=== PATIENT | female | born 1985 | race Caucasian/White ===

== ENCOUNTER 2017-06-24 18:14 | Emergency (ER) | payer SELFPAY ==
[2017-06-24 18:20] VITALS: BP 158/92
--- NOTE | 2017-06-24 18:26 | UC ---
Lower Extremity/Ankle HPI - HPI Summary HPI Summary: 31 YEAR OLD FEMALE PRESENTS WITH COMPLAINS OF LEFT LOWER LEGS INJURY FROM FALL. - History of Current Complaint Chief Complaint: UCLowerExtremity Stated Complaint: LEG INJURY Time Seen by Provider: 06/24/17 18:24 Hx Last Menstrual Period: IUD does not get - Allergies/Home Medications Allergies/Adverse Reactions: Allergies Allergy/AdvReac Type Severity Reaction Status Date / Time Latex Allergy Intermediate Rash Verified 06/24/17 18:20 Amoxicillin Allergy Unknown Unknown Verified 06/24/17 18:20 Reaction Details Penicillins Allergy Unknown See Comment Verified 06/24/17 18:20 PMH/Surg Hx/FS Hx/Imm Hx Previously Healthy: Yes - Surgical History Surgical History: Yes Surgery Procedure, Year, and Place: . LEEP - Family History Known Family History: Positive: None - Social History Alcohol Use: None Substance Use Type: None Smoking Status (MU): Former Smoker Type: Cigarettes Length of Time of Smoking/Using Tobacco: 2 years Have You Smoked in the Last Year: No When Did the Patient Quit Smoking/Using Tobacco: 2011 Review of Systems Constitutional: Negative Skin: Negative Eyes: Negative ENT: Negative Respiratory: Negative Cardiovascular: Negative Gastrointestinal: Negative Genitourinary: Negative Motor: Negative Neurovascular: Negative Musculoskeletal: Myalgia - LEFT LOWER LEG PAIN PAIN/SWELLING, Other: Neurological: Negative Psychological: Negative All Other Systems Reviewed And Are Negative: Yes Physical Exam Triage Information Reviewed: Yes Vital Signs: Initial Vital Signs Temp 36.9 C 06/24/17 18:15 Pulse 107 06/24/17 18:15 Resp 18 06/24/17 18:15 BP 158/92 06/24/17 18:15 Pulse Ox 99 06/24/17 18:15 Eye Exam: Normal ENT Exam: Normal Dental Exam: Normal Neck exam: Normal Neck: Positive: 1 Respiratory Exam: Normal Cardiovascular Exam: Normal Abdominal Exam: Normal Musculoskeletal: Positive: Other: - LEFT LOWER LEG CONTUSION Neurological Exam: Normal Psychological Exam: Normal Skin Exam: Normal Lower Extremity Course/Dx - Differential Dx/Diagnosis Provider Diagnoses: LEFT LOWER LEG CONTUSION Discharge - Discharge Plan Condition: Stable Disposition: HOME Prescriptions: DOXYcycline CAP(*) [DOXYcycline 100MG CAP(*)] 100 mg PO BID #14 cap Meloxicam(NF) [Mobic(NF)] 7.5 mg PO BID #30 tab Mupirocin 2% OINT* [Bactroban 2 % Oint*] 1 applic TOPICAL BID #1 tube Patient Education Materials: Ankle Sprain (ED), Leg Pain (ED) Forms: *Work Release Referrals: Saravanan Alvarez MD [Primary Care Provider] - Carlos Sullivan MD [Medical Doctor] -
--- NOTE | 2017-06-24 19:05 | RAD ---
INDICATION: Left ankle injury COMPARISON: None TECHNIQUE: AP, lateral, and oblique views were obtained. FINDINGS: There is no acute fracture or dislocation. There is a prominent plantar calcaneal spur There is no significant soft tissue swelling. IMPRESSION: NO ACUTE BONY FINDINGS. HEEL SPUR.
--- NOTE | 2017-06-24 19:06 | RAD ---
INDICATION: Left leg injury COMPARISON: None TECHNIQUE: AP and lateral views were obtained. FINDINGS: There is no acute fracture. There is soft tissue swelling of the lateral distal leg with a disruption of the normal fat- muscle interface. IMPRESSION: MILD DISTAL LATERAL SOFT TISSUE SWELLING
== END 2017-06-24 19:30 | disposition home or self-care (01) ==
LOC: UCEAST 18:14
DX: S80.12XA Contusion of left lower leg, initial encounter (principal); W19.XXXA Unspecified fall, initial encounter; Z88.0 Allergy status to penicillin; Z88.3 Allergy status to other anti-infective agents; Z91.040 Latex allergy status; Z87.891 Personal history of nicotine dependence
CPT/HCPCS: 84702; 99213; G0463

== ENCOUNTER 2017-06-27 16:43 | Emergency (ER) | payer SELFPAY ==
[2017-06-27 16:52] VITALS: BP 142/73
--- NOTE | 2017-06-27 17:37 | UC ---
Lower Extremity/Ankle HPI - HPI Summary HPI Summary: Pt fell on some steps 3 days ago sustaining abrasions and hematoma to front of L yadav. Was seen here, negative x-ray. Supposed to return to work tomorrow but is not feeling up to it since even putting on socks and shoes is very uncomfortable. 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 Denies calf pain, redness, fever, or streaking. - History of Current Complaint Hx Obtained From: Patient Hx Last Menstrual Period: 3 yrs ago ?: No Onset/Duration: Sudden Onset Severity Initially: Moderate Severity Currently: Moderate Aggravating Factor(s): Standing, Ambulation Alleviating Factor(s): Rest Able to Bear Weight: Yes <Jeimy Strong - Last Filed: 06/27/17 17:32> <Alessandra Aviles - Last Filed: 06/27/17 17:43> - History of Current Complaint Chief Complaint: UCLowerExtremity Stated Complaint: LEG INJURY FOLLOW UP Time Seen by Provider: 06/27/17 17:10 - Allergies/Home Medications Allergies/Adverse Reactions: Allergies Allergy/AdvReac Type Severity Reaction Status Date / Time Latex Allergy Intermediate Rash Verified 06/27/17 16:52 Amoxicillin Allergy Unknown Unknown Verified 06/27/17 16:52 Reaction Details Penicillins Allergy Unknown See Comment Verified 06/27/17 16:52 PMH/Surg Hx/FS Hx/Imm Hx Other Cardiovascular History: murmur - Surgical History Surgical History: Yes Surgery Procedure, Year, and Place: . LEEP - Family History Known Family History: Positive: None - Social History Occupation: Employed Full-time Lives: With Family Alcohol Use: None Substance Use Type: None Smoking Status (MU): Former Smoker Type: Cigarettes Length of Time of Smoking/Using Tobacco: 2 years Have You Smoked in the Last Year: No When Did the Patient Quit Smoking/Using Tobacco: 2011 <Jeimy Strong - Last Filed: 06/27/17 17:32> Review of Systems Constitutional: Negative Skin: Bruising Eyes: Negative ENT: Negative Respiratory: Negative Cardiovascular: Negative Gastrointestinal: Negative Genitourinary: Negative Motor: Negative Neurovascular: Negative Musculoskeletal: Negative Neurological: Negative Psychological: Negative All Other Systems Reviewed And Are Negative: Yes <Jeimy Strong - Last Filed: 06/27/17 17:32> Physical Exam Triage Information Reviewed: Yes Appearance: Well-Appearing, No Pain Distress, Obese Vital Signs: Initial Vital Signs Temp 98.7 F 06/27/17 16:47 Pulse 71 06/27/17 16:47 Resp 12 06/27/17 16:47 BP 142/73 06/27/17 16:47 Pulse Ox 100 06/27/17 16:47 Vital Signs Reviewed: Yes Eye Exam: Normal, Other - PERRL Eyes: Positive: Conjunctiva Clear ENT Exam: Normal ENT: Positive: Normal ENT inspection, Hearing grossly normal, Pharynx normal, TMs normal Dental: Positive: Gross Decay/Caries @. Negative: Percussion Tenderness @, Abscess @ Neck exam: Normal Neck: Positive: Supple, Nontender, No Lymphadenopathy Respiratory Exam: Normal Respiratory: Positive: Chest non-tender, Lungs clear, Normal breath sounds, No respiratory distress, No accessory muscle use Cardiovascular Exam: Normal Cardiovascular: Positive: RRR, No Murmur Musculoskeletal Exam: Other - +CMS in L toes; swelling and bruising on anterior L yadav only. No L calf tenderness or swelling. Musculoskeletal: Positive: Strength Intact, ROM Intact Neurological Exam: Normal Neurological: Positive: Alert Psychological Exam: Normal Skin Exam: Other - hematoma L yadav Skin: Positive: Other - small linear abrasion on L yadav <Jeimy Strong - Last Filed: 06/27/17 17:32> Vital Signs: Initial Vital Signs Temp 98.7 F 06/27/17 16:47 Pulse 71 06/27/17 16:47 Resp 12 06/27/17 16:47 BP 142/73 06/27/17 16:47 Pulse Ox 100 06/27/17 16:47 <Alessandra Aviles - Last Filed: 06/27/17 17:43> Lower Extremity Course/Dx - Differential Dx/Diagnosis Provider Diagnoses: L yadav hematoma. L yadav abrasion <Jeimy Strong - Last Filed: 06/27/17 17:32> Discharge <Jeimy Strong - Last Filed: 06/27/17 17:32> <Alessandra Aviles - Last Filed: 06/27/17 17:43> - Discharge Plan Condition: Stable Disposition: HOME Patient Education Materials: Hematoma (ED) Forms: *Work Release Referrals: Saravanan Alvarez MD [Primary Care Provider] - Additional Instructions: Please follow up with the orthopedist as recommended by your physician on Saturday. Continue to elevate when needed, but try to gradually increase your activity to help the hematoma start to resolve. Attestation Statement User Type: Provider - I was available for consult. This patient was seen by the MARCEL. The patient was not presented to, seen by, or examined by me. -Mili <Alessandra Aviles - Last Filed: 06/27/17 17:43>
== END 2017-06-27 17:42 | disposition home or self-care (01) ==
LOC: UCEAST 16:43
DX: S80.12XA Contusion of left lower leg, initial encounter (principal); S80.812A Abrasion, left lower leg, initial encounter; Z87.891 Personal history of nicotine dependence; W10.9XXA Fall (on) (from) unspecified stairs and steps, initial encounter; Y92.9 Unspecified place or not applicable
CPT/HCPCS: 99211; G0463

== ENCOUNTER 2017-08-24 17:13 | Emergency (ER) | payer BC, OTHER ==
[2017-08-24 19:05] VITALS: BP 133/87
--- NOTE | 2017-08-24 19:53 | UC ---
Dental HPI - HPI Summary HPI Summary: Patient presents to the with CC of pain over left lower molar radiating to the jaw and ear. Denies trismus, drooling or dysphagia. Pain is 10/10, sharp and throbbing. Denies airway compromise or SOB. Denies ear pain, eye pain, blurry vision or double vision. Otherwise healthy. Pain is worse with chewing and cold drinks, better with ibuprofen, but only improves slightly. Patient denies dental care for several years. She has been using orajel without relief. - History of Current Complaint Chief Complaint: UCEar Stated Complaint: JAW PAIN Time Seen by Provider: 08/24/17 19:24 Hx Obtained From: Patient Hx Last Menstrual Period: 3-4 yrs ?: No Onset/Duration: Sudden Onset Severity: Moderate Pain Intensity: 5 Pain Scale Used: 0-10 Numeric - Allergies/Home Medications Allergies/Adverse Reactions: Allergies Allergy/AdvReac Type Severity Reaction Status Date / Time Latex Allergy Intermediate Rash Verified 08/24/17 19:05 Amoxicillin Allergy Unknown Unknown Verified 08/24/17 19:05 Reaction Details Penicillins Allergy Unknown See Comment Verified 08/24/17 19:05 PMH/Surg Hx/FS Hx/Imm Hx Previously Healthy: Yes - Surgical History Surgical History: Yes Surgery Procedure, Year, and Place: . LEEP - Family History Known Family History: Positive: None - Social History Occupation: Employed Full-time Lives: With Family Alcohol Use: None Substance Use Type: None Smoking Status (MU): Former Smoker Type: Cigarettes Length of Time of Smoking/Using Tobacco: 2 years Have You Smoked in the Last Year: No When Did the Patient Quit Smoking/Using Tobacco: 2011 Review of Systems Constitutional: Negative Skin: Negative ENT: Dental Pain Respiratory: Negative Cardiovascular: Negative Genitourinary: Negative Neurovascular: Negative Musculoskeletal: Negative Is Patient Immunocompromised?: No All Other Systems Reviewed And Are Negative: Yes Physical Exam Triage Information Reviewed: Yes Appearance: Well-Appearing, Well-Nourished Vital Signs: Initial Vital Signs Temp 97.6 F 08/24/17 19:02 Pulse 81 08/24/17 19:02 Resp 12 08/24/17 19:02 BP 133/87 08/24/17 19:02 Pulse Ox 98 08/24/17 19:02 Vital Signs Reviewed: Yes Eye Exam: Normal Eyes: Positive: Conjunctiva Clear Neck exam: Normal Neck: Positive: Supple, No Lymphadenopathy Respiratory Exam: Normal Respiratory: Positive: Chest non-tender Cardiovascular Exam: Normal Cardiovascular: Positive: RRR Musculoskeletal: Positive: Strength Intact Neurological Exam: Normal Neurological: Positive: Alert Psychological: Positive: Normal Response To Family Skin Exam: Normal Dental Complaint Course/Dx - Course Course Of Treatment: You have been diagnosed with dental pain with possible infection: Antibiotics as prescribed to you. Penicillin four times daily for 7 days. To minimize the potential for gastrointestinal intolerance, Pencillin should be taken at the start of a meal. If you have any questions about your medication, please contact us or ask your pharmacist. Salt water rinses several times per day will improve healing time. Ibuprofen 600mg three times daily with meals for discomfort. May use ETOH or orajel over the area for comfort. Follow up with a dentist for routine care to prevent recurrence of infections. If fever, worsening pain or swelling develops, see your PCP, dentist or come back to the Urgent Care. - Differential Dx/Diagnosis Differential Diagnosis/Dx: Dental Abscess, Dental Caries Provider Diagnoses: Dental Infection Discharge - Discharge Plan Condition: Stable Disposition: HOME Prescriptions: HYDROcodone/ACETAMIN 5-325 MG* [Osprey 5-325 TAB*] 1 tab PO Q4H PRN #12 tab MDD 6 PRN Reason: Pain Penicillin VK 500 MG TAB(NF) [Penicillin VK 500 mg Tab(NF)] 500 mg PO QID #28 tab MDD 4 Patient Education Materials: Dental Abscess (ED) Referrals: Saravanan Alvarez MD [Primary Care Provider] - Additional Instructions: You have been diagnosed with dental pain with possible infection: Antibiotics as prescribed to you. Penicillin four times daily for 7 days. To minimize the potential for gastrointestinal intolerance, Pencillin should be taken at the start of a meal. If you have any questions about your medication, please contact us or ask your pharmacist. Salt water rinses several times per day will improve healing time. Ibuprofen 600mg three times daily with meals for discomfort. May use lollicaines over the area for comfort. Follow up with a dentist for routine care to prevent recurrence of infections. If fever, worsening pain or swelling develops, see your PCP, dentist or come back to the Emergency Department.
[2017-08-24] MEDS ORDERED: HYDROcodone/ACETAMIN 5-325 MG* 1 TAB PO ONE (20:19)
[2017-08-24] MEDS ORDERED: Clindamycin CAP* 150 MG PO ONE (20:19)
== END 2017-08-24 20:31 | disposition home or self-care (01) ==
LOC: UCEAST 17:13
DX: K04.7 Periapical abscess without sinus (principal); Z88.1 Allergy status to other antibiotic agents; Z88.0 Allergy status to penicillin; Z87.891 Personal history of nicotine dependence
CPT/HCPCS: 99212; A9270-GY; G0463

== ENCOUNTER 2017-10-21 08:46 | Emergency (ER) | payer BC ==
[2017-10-21 08:52] VITALS: BP 153/93
--- NOTE | 2017-10-21 09:19 | UC ---
Dental HPI - HPI Summary HPI Summary: 32 y/o female presents to the urgent care c/o Rt upper gum pain, left ear pain and dizziness at times since 10/18/2017. Pt states she had similar symptoms about 1 month ago. She was PX ABX and f/u with her [facility] who extracted a molar in her RT upper jaw. Today, toothache with swelling is in a different tooth. Pain was severe yesterday 08/04 and she took Ibuprofen 600mg PO and 3 tabs of tylenol PO, 3X yesterday to alleviate pain, She also placed ice, oralgel and salt water. This morning pain was less and she took Ibuprofen 600mg PO around 0600am. Pt denies fever, SOB, CORCORAN, chest pain, abdominal pain, N/V/D. Pain now is /. She PCP allergic. - History of Current Complaint Chief Complaint: UCDentalProblem Stated Complaint: DENTAL PAIN Time Seen by Provider: 10/21/17 09:17 Hx Obtained From: Patient Hx Last Menstrual Period: IUD ?: No Onset/Duration: Gradual Onset, Lasting Days - 3 days, Still Present Severity: Moderate Pain Intensity: 6 Pain Scale Used: 0-10 Numeric Aggravating Factor(s): Chewing Alleviating Factor(s): Topical Meds Related History: Swelling - Allergies/Home Medications Allergies/Adverse Reactions: Allergies Allergy/AdvReac Type Severity Reaction Status Date / Time Latex Allergy Intermediate Rash Verified 10/21/17 08:52 Amoxicillin Allergy Unknown Unknown Verified 10/21/17 08:52 Reaction Details Penicillins Allergy Unknown See Comment Verified 10/21/17 08:52 PMH/Surg Hx/FS Hx/Imm Hx Previously Healthy: Yes - Pt denies PMHX - Surgical History Surgical History: Yes Surgery Procedure, Year, and Place: . LEEP - Family History Known Family History: Positive: Hypertension, Diabetes - Social History Occupation: Employed Full-time Lives: With Family Alcohol Use: None Substance Use Type: None Smoking Status (MU): Former Smoker Type: Cigarettes Length of Time of Smoking/Using Tobacco: 2 years Have You Smoked in the Last Year: No When Did the Patient Quit Smoking/Using Tobacco: 2011 - Immunization History Most Recent Influenza Vaccination: Not UTD Review of Systems Constitutional: Negative Skin: Negative Eyes: Negative ENT: Dental Pain - with swelling in the left upper jaw Respiratory: Negative Cardiovascular: Negative Gastrointestinal: Negative Genitourinary: Negative Motor: Negative Neurovascular: Negative Musculoskeletal: Negative Neurological: Headache Psychological: Negative Is Patient Immunocompromised?: No All Other Systems Reviewed And Are Negative: Yes Physical Exam Triage Information Reviewed: Yes Vital Signs: Initial Vital Signs Temp 97.5 F 10/21/17 08:48 Pulse 86 10/21/17 08:48 Resp 16 10/21/17 08:48 BP 153/93 10/21/17 08:48 Pulse Ox 99 10/21/17 08:48 - Additional Comments Vital signs reviewed General: well developed. well nourished female sitting in the examining table w/ o any apparent distress Eyes: Positive: Conjunctiva Clear - PERRLA, EOMI, fundi grossly normal ENT: Positive: Normal ENT inspection, Hearing grossly normal, Pharyngeal erythema, TMs normal, Uvula midline. Negative: Tonsillar swelling, Tonsillar exudate, Trismus Dental: Positive: Percussion Tenderness @ - molar 12,13, Gross Decay/Caries and fracture molar at 12, 13, Abscess @ - molar 12,13, Cervical Lymphadenopathy - B/ L anterior, Other:Poor dental hygiene with multiple missing molars and other with caries. Positive left cheek with mild swelling Neck: Positive: Supple, Nontender Respiratory: Positive: Chest non-tender, Lungs clear, Normal breath sounds, No respiratory distress Cardiovascular: Positive: RRR, No Murmur, Pulses Normal, Brisk Capillary Refill Abdomen Description: Positive: Nontender, No Organomegaly, Soft. Negative: CVA Tenderness (R), CVA Tenderness (L) Bowel Sounds: Positive: Present Musculoskeletal: Positive: Strength Intact, ROM Intact, No Edema Neurological Exam: Normal Psychological Exam: Normal Skin Exam: Normal Dental Complaint Course/Dx - Course Course Of Treatment: 32 y/o female presents to the urgent care c/o Rt upper gum pain, left ear pain and dizziness at times since 10/18/2017. Pt states she had similar symptoms about 1 month ago. She was PX ABX and f/u with her [facility] who extracted a molar in her RT upper jaw. Today, toothache with swelling is in a different tooth. Pain was severe yesterday 08/04 and she took Ibuprofen 600mg PO and 3 tabs of tylenol PO, 3X yesterday to alleviate pain, She also placed ice, oralgel and salt water. This morning pain was less and she took only Ibuprofen 600mg PO around 0600am. Pt denies fever, SOB, CORCORAN, chest pain , abdominal pain, N/V/D. Pain now is 6/10. She PCP allergic. Hx obtained. Pt Pt with dental abscess on and fracture molar #12 ans 13 and multiple caries on examination. Pt has took 4500mg of Tylenol and 2400mg of Ibuprofen in the past 30hrs. Pt educated on tylenol dosages and the risks of acetaminophen overdose, liver and kidney failure. Also educated on the importance of good oral hygiene and f/u with Dentist as soon as possible. Pt given viscous Lidocaine at the clinic and the rest dispense home to alleviate symptoms . Pt Rx Clyndamycin PO and Naproxen PO for pain. Pt strongly advised to f/u with Dentist as soon as possible further evaluation and treatment. Pt's BP is elevated today, Pt advised to decrease salt in diet , monitor BP and f/u with PCP. Pt understood and agreed with plan of care. Left the clinic ambulating, hemodynamycally stable , A&OX3 - Differential Dx/Diagnosis Differential Diagnosis/Dx: Dental Abscess, Dental Caries, Fractured Tooth, Gingivitis, Odontogenic Pain, Peridontic Disease, Peritonsillar Abcess, Pharyngitis, TMJ Syndrome, Tonsillitis Provider Diagnoses: 1- Dental abscess around molar #12 and 13. 2- Mutiple fracture teeth and caries Discharge - Discharge Plan Condition: Stable Disposition: HOME Prescriptions: Clindamycin Cap(NF) [Clindamycin Cap 300 mg Cap(NF)] 300 mg PO Q6H #29 cap Naproxen [Naproxen 500 mg] 500 mg PO Q8H PRN #30 tab PRN Reason: Pain Patient Education Materials: Dental Abscess (ED), Low Sodium Diet (ED), Safe Use of Acetaminophen (ED) Referrals: Saravanan Alvarez MD [Primary Care Provider] - 3 Days Additional Instructions: 1-Please take full course of antibiotic to avoid resistance. 2- Take Naproxen only q6-8hr as instructed after meals to alleviate pain and swelling. Please REMEMBER not to combine with Advil or Tylenol. Max dose of tylenol per day is 4g and Ibuprofen max dose daily is 2400mg. 3- F/u with your Dentist or Dental List provided as soon as possible for further treatment. 4- If symptoms do not improve or worsen please return to the urgent care or f/u with your PCP for further evaluation and treatment 5- Your BP is elevated today please monitor your BP and decrease salt in your diet. If your BP continues to be elevated please f/u with your PCP for further management
[2017-10-21] MEDS ORDERED: Lidocaine 2% VISCOUS* 15 ML UDC SWISH SPIT ONE (09:42)
== END 2017-10-21 10:03 | disposition home or self-care (01) ==
LOC: UCEAST 08:46
DX: K04.7 Periapical abscess without sinus (principal); S02.5XXA Fracture of tooth (traumatic), initial encounter for closed fracture; K02.9 Dental caries, unspecified; Z87.891 Personal history of nicotine dependence
CPT/HCPCS: 99212; G0463

== ENCOUNTER 2018-06-18 16:32 | Emergency (ER) | payer OTHER ==
--- NOTE | 2018-06-18 18:04 | ED ---
Abdominal Pain/Female - HPI Summary HPI Summary: This is manoj Eldridge documenting for attending Horacio Cade M.D. Patient is a 32 y/o F w/ c/o abdominal pain onsetting today. Patient reports that two years ago her doctor informed her that she has a "fatty tumor" in her abdomen. She states her doctor told her not to worry about it unless it gets bigger or worsens. Today, patient reports twisting her body, feeling a pull, and then experiencing subsequent abdominal pain. She reports tumor has also gotten larger. In the room, pain is rated 5/10. Pain is not reported to radiate. She notes that she has had issues with this type of pain previously and states that it would be brought on by certain movements. Nothing is reported to alleviate symptoms. Patient denies N/V/D, constipation, chest pain, and SOB. PSHx of caesarean section is noted and she states her LNMP was 9 years ago. Allergies and home medications are noted. - History of Current Complaint Chief Complaint: EDAbdPain Stated Complaint: ABD PAIN/MASS Time Seen by Provider: 06/18/18 18:01 Hx Obtained From: Patient Hx Last Menstrual Period: IUD Onset/Duration: Sudden Onset, Lasting Hours - onset today Timing: Constant - pain has been constant today, notes intermittent episodes previously brought on by certain movements Severity Currently: Moderate Pain Intensity: 5 Pain Scale Used: 0-10 Numeric - 5/10 Location: Suprapubic Radiates: No Aggravating Factor(s): Movement Alleviating Factor(s): Nothing Associated Signs and Symptoms: Positive: Other: - NEGATIVE: SOB, constipation. Negative: Chest Pain, Nausea, Vomiting, Diarrhea Allergies/Adverse Reactions: Allergies Allergy/AdvReac Type Severity Reaction Status Date / Time amoxicillin Allergy Anaphylatic Verified 06/18/18 16:43 Shock Latex, Natural Rubber Allergy Rash Verified 06/18/18 16:43 Penicillins Allergy Hives Verified 06/18/18 16:43 PMH/Surg Hx/FS Hx/Imm Hx Endocrine/Hematology History: Denies: Hx Diabetes Cardiovascular History: Denies: Hx Hypertension, Hx Pacemaker/ICD Respiratory History: Denies: Hx Asthma Sensory History: Denies: Hx Hearing Aid Neurological History: Denies: Hx Headaches Psychiatric History: Denies: Hx Panic Disorder - Cancer History Cancer Type, 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 LEEP Infectious Disease History: No Infectious Disease History: Denies: Hx Clostridium Difficile, Hx Hepatitis, Hx Human Immunodeficiency Virus (HIV), Hx of Known/Suspected MRSA, Hx Shingles, Hx Tuberculosis, Hx Known/ Suspected VRE, Hx Known/Suspected VRSA, History Other Infectious Disease, Traveled Outside the [place] in Last 30 Days - Family History Known Family History: Positive: None, Hypertension, Diabetes - Social History Alcohol Use: None Substance Use Type: Reports: None Smoking Status (MU): Former Smoker Type: Cigarettes Length of Time of Smoking/Using Tobacco: 2 years Have You Smoked in the Last Year: No Review of Systems Negative: Chest Pain Negative: Shortness Of Breath Positive: Abdominal Pain - lower, Other - NEGATIVE: constipation . Negative: Vomiting, Diarrhea, Nausea All Other Systems Reviewed And Are Negative: Yes Physical Exam - Summary Physical Exam Summary: VITAL SIGNS: Reviewed. GENERAL: Patient is a well-developed and nourished female who is lying comfortable in the stretcher. Patient is not in any acute respiratory distress. HEAD AND FACE: No signs of trauma. No ecchymosis, hematomas or skull depressions. No sinus tenderness. EYES: PERRLA, EOMI x 2, No injected conjunctiva, no nystagmus. EARS: Hearing grossly intact. Ear canals and tympanic membranes are within normal limits. MOUTH: Oropharynx within normal limits. NECK: Supple, trachea is midline, no adenopathy, no JVD, no carotid bruit, no c- spine tenderness, neck with full ROM. CHEST: Symmetric, no tenderness at palpation LUNGS: Clear to auscultation bilaterally. No wheezing or crackles. CVS: Regular rate and rhythm, S1 and S2 present, no murmurs or gallops appreciated. ABDOMEN: Soft, tenderness at suprapubic region. No signs of distention. No rebound no guarding, and no masses palpated. Bowel sounds are normal. EXTREMITIES: FROM in all major joints, no edema, no cyanosis or clubbing. NEURO: Alert and oriented x 3. No acute neurological deficits. Speech is normal and follows commands. SKIN: Dry and warm Triage Information Reviewed: Yes Vital Signs On Initial Exam: Initial Vitals Temp Pulse Resp BP Pulse Ox 96.6 F 73 16 134/92 98 06/18/18 16:39 06/18/18 16:39 06/18/18 16:39 06/18/18 16:39 06/18/18 16:39 Vital Signs Reviewed: Yes Diagnostics - Vital Signs Vital Signs Temp Pulse Resp BP Pulse Ox 06/18/18 16:39 96.6 F 73 16 134/92 98 - Laboratory Result Diagrams: 06/18/18 18:14 06/18/18 18:14 Lab Statement: Any lab studies that have been ordered have been reviewed, and results considered in the medical decision making process. Abdominal Pain Fem Course/Dx - Course Course Of Treatment: This patient is a 32-year-old female who presents to the emergency department with chief complaint of having left lower quadrant pain. The patient is been having this pain intermittently for the last couple months. Pain is dull constant 4-5 out of 10 without radiation. The patient denies any vaginal bleeding or vaginal discharge. The patient has menstrual cycle it was 8 years ago. The patient reports that she has an IUD. Blood test results without any significant abnormality. Anesthetizes is negative. Abdominal pelvic CT impression: No acute findings. In the ED course the patient was given Toradol for the pain. Since the CT is negative the patient will be discharged home with follow-up with primary care physician. The patient declined a pelvic exam. Patient is hemodynamically stable alert and oriented 3. I discussed all the findings and test results with the patient. Patient was instructed to return to the emergency room immediately if any of the symptoms return or worsens. Plan of care was discussed with the patient and understands and agrees. All questions were answered at patient satisfaction. There were no further complaints or concerns. Lung exam before discharge: CTA B/L. Good air exchange. No wheezing or crackles heard. CVS: S1 and S2 present. No murmurs appreciated. Patient is alert and oriented x 3. Patient is hemodynamically stable. Patient will be discharged home with follow up PCP in the next 2-3 days - Diagnoses Provider Diagnoses: Lower abdominal pain Discharge - Sign-Out/Discharge Documenting (check all that apply): Patient Departure - Discharge Plan Condition: Stable Disposition: HOME Prescriptions: Naproxen [Naproxen 500 mg tab] 500 mg PO BID PRN #20 tablet PRN Reason: Pain Patient Education Materials: Acute Abdominal Pain (ED) Referrals: Saravanan Alvarez MD [Primary Care Provider] - Additional Instructions: Return to the emergency department for any new or worsening symptoms. - Billing Disposition and Condition Condition: STABLE Disposition: Home
[2018-06-18 18:35] LABS: ABS Basophils 0 10^3/ul (0-0.2); ABS Eosinophils 0 10^3/ul (0-0.6); ABS Lymphocytes 1.5 10^3/ul (1.0-4.8); ABS Monocytes 0.7 10^3/ul (0-0.8); ABS Neutrophils 6.2 10^3/ul (1.5-7.7); ABS Nucleated RBC 0 10^3/ul; Eosinophil % 0.4 % (0-6); Hematocrit 41 % (35-47); Hemoglobin 14.3 g/dl (12.0-16.0); Lymphocyte % 18.1 % (25-47); Mean Corpuscular HGB Conc 35 g/dl (31-36); Mean Corpuscular Hemoglobin 31 pg (27-31); Mean Corpuscular Volume 88 fL (80-97); Mean Platelet Volume 8.6 um3 (7.4-10.4); Nucleated Red Blood Cells % 0.2; Platelet Count 262 10^3/ul (150-450); Red Blood Count 4.67 10^6/ul (4.00-5.40); Red Cell Distribution Width 13 % (10.5-15); White Blood Count 8.5 10^3/ul (3.5-10.8)
[2018-06-18 18:55] LABS: EGFR Non-African American 108.8 (>60)
[2018-06-18] MEDS ORDERED: Ketorolac INJ* 30 MG/ML 1 ML VIAL IV PUSH ONE (19:00)
[2018-06-18 19:27] LABS: Urine Appearance Cloudy; Urine Blood Negative (Negative); Urine Color Straw; Urine Ketones Negative (Negative); Urine Protein Negative (Negative); Urine Red Blood Cell Trace(0-2/hpf) (Absent); Urine Specific Gravity 1.004 (1.010-1.030); Urine Urobilinogen Negative (Negative); Urine White Blood Cell Trace(0-5/hpf) (Absent)
[2018-06-18] MEDS ORDERED: Iohexol 300* (CONTRAST) 10 ML SDV IV ONE (20:04)
[2018-06-18 22:54] VITALS: BP 123/93
--- NOTE | 2018-06-19 07:39 | RAD ---
INDICATION: Lower abdominal pain COMPARISON: None TECHNIQUE: Axial source images were obtained from the hemidiaphragms to the symphysis pubis following administration of oral and intravenous contrast. 121 mL Omnipaque 300 was utilized. Coronal and sagittal reconstructed images were acquired. Lung bases: The lung bases are clear. Liver: The liver is normal in size. There are no masses. There is no ductal dilatation. Gallbladder: There are no calcified gallstones. There is no evidence of wall thickening or pericholecystic fluid. Spleen: The spleen is normal in size. There are no masses. Pancreas: There is no focal pancreatic mass or ductal dilatation. Adrenal glands: There is no evidence of adrenal mass. Kidneys: The kidneys are normal in size and position. There are prompt nephrograms and there is prompt excretion bilaterally. There are no renal parenchymal masses. There is no evidence of nephrolithiasis. Adenopathy: There is no evidence of adenopathy by size criteria. Fluid collections: There are no free or localized fluid collections. Vessels:There are no significant atherosclerotic changes involving the aorta. There is no focal aneurysm. The iliac vessels are normal in caliber. The IVC appears normal. GI tract: There are no acute CT bowel findings. There is no obstruction. The stomach and small bowel appear normal. The lower GI tract is normal. The cecum, ileocecal valve, and terminal ileum appear normal. The appendix is visualized and appear normal. Pelvic organs: The uterus and adnexa appear normal. There is an IUD Bladder: There are no bladder masses. Abdominal and pelvic soft tissues: The extraperitoneal abdominal and pelvic soft tissues appear normal.. Osseous structures: There are no acute osseous findings. Other: None IMPRESSION: NO ACUTE CT FINDINGS. NO MASS OR INFLAMMATORY CHANGES.
== END 2018-06-18 22:51 | disposition home or self-care (01) ==
LOC: ED 16:32
DX: R10.30 Lower abdominal pain, unspecified (principal); Z97.5 Presence of (intrauterine) contraceptive device; Z87.891 Personal history of nicotine dependence; Z88.3 Allergy status to other anti-infective agents; Z88.0 Allergy status to penicillin
CPT/HCPCS: 36415; 74177; 80053; 81003; 81015; 83690; 84702; 85025; 86140; 87086; 96374; 99282; J1885; Q9967

== ENCOUNTER → 2018-11-27 | Day surgery (SDC) | payer OTHER ==
--- NOTE | 2018-11-12 13:39 | HP ---
CC: Dr. Saravanan Alvarez; Dr. Gabriela Gao * PREOPERATIVE HISTORY AND PHYSICAL: DATE OF ADMISSION/SURGERY: 11/27/18 This patient is scheduled for same-day surgery admission by Dr. Dang on , 11/27/18. DATE OF PREOPERATIVE HISTORY AND PHYSICAL EXAMINATION: 11/12/18. ATTENDING SURGEON: Dr. Angelito Dang * (dictated by Maliha Martinez NP). CHIEF COMPLAINT: Abdominal mass. HISTORY OF PRESENT ILLNESS: The patient is a 33-year-old female recently evaluated by Dr. Dang for a tender mass in the left lower quadrant of the abdomen at the site of a previous section incision. She states that she has noticed a lump in the left lower abdomen for a number of years, but more recently it has been enlarging and becoming more uncomfortable. She denies any signs or symptoms that would suggest incarceration or strangulation. She had a section about [address] Dang examined the patient and has recommended excision of what is most likely an endometrioma of the abdominal wall as a same-day surgery procedure; he discussed the nature of the surgical procedure, the relevant risks and benefits and today I reviewed the postoperative care and recovery. The patient has had a chance to ask questions and stated that she understands the information and is satisfied with the answers given to her questions. She will sign surgical consent on the day of surgery. PAST MEDICAL HISTORY: Significant for anxiety and depression, which was recently diagnosed. PAST SURGICAL HISTORY: section in 2007 and LEEP procedure. OBSTETRICAL HISTORY: 1, para 1. Her last pelvic exam was in August 2018 and she has a Mirena IUD. MEDICATIONS: 1. Citalopram 10 mg 2 tablets p.o. daily in the morning. 2. She was prescribed clonazepam, but has been unable to tolerate that due to heavy sedation and will be talking with her primary care provider about a substitute. ALLERGIES: AMOXICILLIN and PENICILLIN caused unspecified reaction in childhood that led to hospitalization. LATEX causes rash. FAMILY HISTORY: One of her grandfathers had multiple myeloma and one of her grandmothers was diabetic. No known anesthesia complications, bleeding tendencies, or clotting disorders. SOCIAL HISTORY: She lives with her boyfriend and is employed at the [employer]. Currently, she is not working; she quit smoking in 2011; she denies the use of alcohol or other substances. REVIEW OF SYSTEMS: Constitutional: No fevers, chills, excessive fatigue, or weight loss. Endocrine: No diabetes or thyroid disease. Hematologic: No easy bruising or bleeding. No history of blood transfusions. Respiratory: No dyspnea on exertion. No chronic cough. Cardiovascular: No anginal chest pain or palpitations. Gastrointestinal: No nausea, vomiting, diarrhea, GI bleeding , or constipation, no change in bowel habits. Genitourinary: No dysuria. Musculoskeletal: No complaints of back or joint pain. Integumentary: No chronic rashes or skin changes. No history of MRSA infections. Neurologic: No headache or blurred vision. General: No history of deep vein thrombosis or pulmonary embolism. No previous anesthesia complications. PHYSICAL EXAMINATION GENERAL SURVEY: The patient is a 33-year-old overweight female, in no acute distress. VITAL SIGNS: Height 63 inches, weight 212 pounds, body mass index 37. Blood pressure 120/84, pulse 76, respiratory rate 16, temperature 96.4. HEENT: Benign. NECK: Supple. No cervical lymphadenopathy. No thyromegaly. BACK: No CVA tenderness. LUNGS: Breath sounds bilaterally clear and equal. HEART: Regular rate and rhythm. No murmurs or rubs. ABDOMEN: Active bowel sounds. Soft and nondistended. There is a tender mass in the left lower quadrant at the lateral aspect of the previous section incision; there is no obvious hernia defect. It is not fluctuant. There is no overlying skin change. The right side of the incision is without mass or tenderness. PELVIC AND RECTAL: Exams done recently, not repeated. EXTREMITIES: Well perfused and without edema. NEUROLOGIC: Alert and oriented x3. Steady gait. SKIN: Warm, dry, intact. IMPRESSION: A 33-year-old female with signs and symptoms consistent with an endometrioma in the scar from a previous section. PLAN: Same-day surgery admission to Dr. Dang's service on , 11/27/18 , for excision of endometrioma of abdominal wall. QUEENIE MARTINEZ, APRIL [id number]/[facility] #: [id number] [facility]S HOSPITALYoshi
[~2018-11-27] MED LIST: Buffered Lidocaine 0.9% SYRIN* 5 ML/SYR SYRINGE INTRADERM ONE; Bupivacaine 0.5% W/EPI SDV* 30 ML VIAL ONE; Clindamycin 900 MG/D5W BAG(*) 900 MG/50 ML BAG IVPB ONE; Dexamethasone TAB* 4 MG ONE; Dexamethasone TAB* 4 MG PO ONE; DiMENhydriNATE IV* 50 MG/ML VIAL IV PUSH PRN; Famotidine IV* 10 MG/ML 2 ML (20 mg) IV ONE; Famotidine IV* 10 MG/ML 2 ML (20 mg) ONE; KETAMINE HCL* 50 MG/ML 10 ML VIAL ONE; Ketorolac INJ* 30 MG/ML 1 ML VIAL ONE; Lactated Ringers 1000 ML Bag* 1,000 ML IV SCH; Lidocaine 1% INJ* 10 MG/ML 30 ML SDV ONE; Lidocaine 2% PF * 5 ML VIAL ONE; Midazolam* 1 MG/ML 5 ML VIAL (5 MG) ONE; Morphine VIAL* 4 MG/ML VIAL (1 ml vial) IV PRN; Naloxone* 0.4 MG/ML 1 ML VIAL IV PRN; Ondansetron ODT TAB* 4 MG ONE; Ondansetron TAB* 4 MG PO ONE; PROCHLORPERAZINE INJ 5 MG/ML 2 ML VIAL IV PRN; PROCHLORPERAZINE INJ 5 MG/ML 2 ML VIAL ONE; Propofol* 10 MG/ML 20 ML BTL ONE; Scopolamine 1.5 mg* PATCH TRANSDERM PRN; Scopolamine PATCH Remove* 1 NOTE MISC PATCH OFF ONE; fentaNYL* 50 MCG/ML 2 ML VIAL (100 MCG VIAL) ONE; oxyCODONE/Acetamin 5/325 MG* TAB ONE; oxyCODONE/Acetamin 5/325 MG* TAB PO PRN
[2018-11-27] MEDS: fentaNYL* 50 MCG/ML 2 ML VIAL (100 MCG VIAL) IV PRN ×4 (12:41→12:53)
[2018-11-27 14:20] VITALS: BP 117/77
--- NOTE | 2018-11-27 20:49 | OP ---
CC: Dr. Alvarez; Dr. Gao * DATE OF OPERATION: 11/27/18 - [facility] DATE OF : 83 SURGEON: Angelito Dang MD UNDERWRITING DIRECTOR: None. ANESTHESIOLOGIST: Dr. Martin. ANESTHESIA: General anesthetic, local infiltration. PRE-OP DIAGNOSIS: Abdominal wall mass. POST-OP DIAGNOSIS: Abdominal wall mass. OPERATIVE PROCEDURE: Excision of abdominal wall mass. DESCRIPTION OF PROCEDURE: The patient was supine on the operative table. After adequate general anesthetic, compression stockings, Tram Hugger warmer, and intravenous antibiotics, the abdomen was prepped with antiseptic, draped in a sterile fashion. Local infiltrative anesthesia was administered and the previous Pfannenstiel incision was entered at its left lateral extent. Dissection was carried down to the adipose and a mass was palpable. The mass was not entered, but was taken out en caterina and it ended up being just superficial to the anterior fascia, so it was really just all in the subcutaneum. It was marked with the usual marking sutures and sent in formalin for pathologic evaluation. The adipose was reapproximated with 4-0 Vicryl and 4 -0 Vicryl was also used for skin closure followed by Steri-Strips and a sterile dressing. She tolerated the procedure well, was awakened and brought to Recovery in good condition. No complications. No drains. Pathologic specimen is abdominal wall mass. Sponge and instrument counts were correct. Estimated blood loss is 20 mL. [id number]/[facility] #: [id number] MTDD
== END | disposition home or self-care (01) ==
LOC: OR 09:54
PROVIDERS: ATTEND Surgery
DX: N80.6 Endometriosis in cutaneous scar (principal); Z87.891 Personal history of nicotine dependence
CPT/HCPCS: 81025; 88305; A9270-GY; J0780; J1885; J2250; J2704; J3010; J8540